=== PATIENT | female | born 1935 | race Caucasian/White ===

== ENCOUNTER 2018-05-13 05:39 | Inpatient (IN) | payer MEDICARE, OTHER ==
[2018-05-01 15:50] LABS: BASOPHILS % (AUTO) 0.6 % (0-1); EOSINOPHILS # (AUTO) 0.2 X10'3 (0-0.9); EOSINOPHILS % (AUTO) 2.2 % (0-6); LYMPHOCYTES # (AUTO) 1.3 X10'3 (1.1-4.8); LYMPHOCYTES % (AUTO) 15.8 % (21-51); MEAN CORPUSCULAR HEMOGLOBIN 30.7 PG (27.0-31.0); MEAN CORPUSCULAR HGB CONC 32.8 % (33.0-36.5); MEAN CORPUSCULAR VOLUME 93.5 FL (78-98); MONOCYTES # (AUTO) 0.6 X10'3 (0-0.9); MONOCYTES % (AUTO) 6.9 % (2-12); NEUTROPHILS # (AUTO) 6.1 X10'3 (1.8-7.7); NEUTROPHILS % (AUTO) 74.5 % (42-75); PRE OP HEMATOCRIT 36.6 % (35.0-45.0); PRE OP PLATELET COUNT 245 X10'3 (140-440); RED BLOOD COUNT 3.92 X10'6 (4.20-5.60)
[2018-05-01 16:18] LABS: ALBUMIN 3.5 G/DL (3.4-5.0); ALKALINE PHOSPHATASE 107 IU/L (46-116); BLOOD UREA NITROGEN 23 MG/DL (7-18); BUN/CREATININE RATIO 17.3 (6.6-38.0); CALCIUM 9.3 MG/DL (8.5-10.1); CHLORIDE 104 MMOL/L (99-107); CREATININE 1.33 MG/DL (0.40-0.90); PRE OP ALT 18 U/L (30-65); PRE OP ANION GAP 10 (8-16); PRE OP AST 16 U/L (10-37); PRE OP BILIRUB, TOTAL 0.3 MG/DL (0.0-1.0); PRE OP GLUCOSE 130 MG/DL (70-104); PRE OP SODIUM 143 MMOL/L (135-145); TOTAL CARBON DIOXIDE 28.8 MMOL/L (24-32); TOTAL PROTEIN 7.1 G/DL (6.4-8.2); eGFR 38 ML/MIN
[2018-05-13] VITALS (19 sets, daily range): BP systolic 71–168; BP diastolic 43–87
[~2018-05-13] VITALS: Ht 167.6 cm; Wt 98.5 kg
[~2018-05-13 05:39] MED LIST: ALLO100T PO; AMLO2.5T2 PO; CALC0.253 PO; CHOL400C8 PO; CYAN-19 PO; DOCU-20 PO; FLUT16SP2 BOTHNARES; FLUT1AER INH; FURO-149 PO; GABA-532 PO; IBUP-2264 PO; IRON150C5 PO; LEVO112T5 PO; MAGN400C PO; MONT10TA24 PO; OMEP20CA10 PO; SENN-161 PO; SIMV20TA5 PO; TIOT18CA3 INH; TRAM50TA2 PO; VALS160T2 PO; VIT1CAPS27 PO; albuterol 2.5 MG/3 ML nebule NEB ONE; cefazolin/dext.iso 2gm/100 ML IV ONE; famotidine 20mg tablet PO ONE; ringers solution, lacted 1,000 ML IV SCH; tranexamic acid inj. 1,000 MG in normal saline 100ml IV soln 90 ML IV ONE; vancomycin inj 1,500 MG in normal saline 300ml IV soln IV ONE
[2018-05-13] MEDS ORDERED: LIDOcaine 1% (10mg/ml) 2ml vial ONE (05:59)
[2018-05-13] MEDS ORDERED: ceFAZolin 1000mg inj ONE (07:00)
[2018-05-13] MEDS ORDERED: tetracaine 1% (10mg/ml) pres. free inj. ONE (07:16)
[2018-05-13] MEDS ORDERED: fentaNYL/PF 50MCG/1 ML 2ML syringe ONE (07:17)
[2018-05-13] MEDS ORDERED: MIDAZolam 5mg/5ml vial ONE (07:18)
[2018-05-13] MEDS ORDERED: propofol inj 20 ML IV ONE (07:54)
[2018-05-13] MEDS ORDERED: ringers solution, lacted 1,000 ML IV SCH (08:18)
[2018-05-13] MEDS ORDERED: morphine 4 MG/ML inj SYRINge IV PRN ×2 (08:20)
[2018-05-13] MEDS ORDERED: proCHLORperazine 10 MG/2 ml inj IV PRN (08:20)
[2018-05-13] MEDS ORDERED: ondansetron/PF 4mg/2ml inj IV PRN ×2 (08:20→10:00)
[2018-05-13] MEDS ORDERED: meperidine/PF 25mg/ml syringe IV PRN ×3 (08:20)
[2018-05-13] MEDS ORDERED: ROPIVAcaine 0.5% (5mg/ml) 30ml vial ONE (08:58)
[2018-05-13] MEDS ORDERED: cloNIDine hcl/PF 100mcg/ml inj ONE (08:59)
[2018-05-13] MEDS ORDERED: magnesium hydroxide 30ml (MOM) UD suspension PO PRN (10:00)
[2018-05-13] MEDS ORDERED: diphenhydrAMINE 25mg capsule PO PRN ×2 (10:00)
[2018-05-13] MEDS ORDERED: HYDROmorphone inj. 0.5 MG/0.5 ML DISP.SYRIN IV PRN (10:00)
[2018-05-13] MEDS ORDERED: bisacodyl 10mg suppository rectal RC PRN (10:00)
[2018-05-13] MEDS: HYDROcodone/acetaminophen 10/325mg tab PO PRN ×3 (11:40→16:53)
[2018-05-13] MEDS ORDERED: albuterol 2.5 MG/3 ML nebule ONE (13:54)
[2018-05-13] MEDS: ipratropium 0.5 MG/2.5ML nebule IH SCH ×3 (14:00→21:12)
[2018-05-13] MEDS: HYDROmorphone 1 mg/ml syringe IV PRN ×2 (15:40→20:01)
[2018-05-13] MEDS: ceFAZolin 1GM/D5W- ADD-VANTAGE 50 ML IV SCH ×2 (15:41→23:59)
[2018-05-13] MEDS ORDERED: aspirin 325mg tablet PO SCH (17:30)
[2018-05-13] MEDS: potassium Cl 20mEq in NS 1,000 ML IV SCH ×2 (19:58→20:13)
[2018-05-13] MEDS ORDERED: vancomycin/NS 1 GM ADD-VANTAGE 250 ML IV SCH (20:00)
[2018-05-13] MEDS ORDERED: non-formulary drug (Omeprazole 1 CAP) PO SCH (20:00)
[2018-05-13] MEDS: pantoprazole 40mg Tablet.DR PO SCH (20:01)
[2018-05-13] MEDS: docusate sod 100mg capsule PO SCH (20:01)
[2018-05-13] MEDS: gabapentin 300mg capsule PO SCH (20:03)
[2018-05-13] MEDS: sennosides 8.6mg tablet PO SCH (20:03)
[2018-05-13] MEDS: montelukast 10mg tablet PO SCH (20:03)
[2018-05-13] MEDS: BUDESONIDE 0.25 MG/2 ML AMPUL.NEB IH SCH (21:12)
[2018-05-13] MEDS: albuterol 2.5 MG/3 ML nebule NEB SCH (21:12)
[2018-05-14] MEDS: HYDROcodone/acetaminophen 10/325mg tab PO PRN ×6 (00:02→21:13)
[2018-05-14 02:00] VITALS: BP 151/58
[2018-05-14] MEDS: ipratropium 0.5 MG/2.5ML nebule IH SCH ×4 (02:57→20:43)
[2018-05-14 05:00] VITALS: BP 125/43
[2018-05-14 05:48] LABS: BASOPHILS % (AUTO) 0.1 % (0-1); EOSINOPHILS # (AUTO) 0.2 X10'3 (0-0.9); EOSINOPHILS % (AUTO) 1.9 % (0-6); HEMATOCRIT 27.8 % (35.0-45.0); HEMOGLOBIN 9.2 g/dl (12.0-16.0); LYMPHOCYTES % (AUTO) 7.4 % (21-51); MEAN CORPUSCULAR HEMOGLOBIN 30.8 PG (27.0-31.0); MEAN CORPUSCULAR HGB CONC 33.1 % (33.0-36.5); MEAN CORPUSCULAR VOLUME 93.1 FL (78-98); MEAN PLATELET VOLUME 6.6 FL (7.4-10.4); MONOCYTES # (AUTO) 1.7 X10'3 (0-0.9); NEUTROPHILS # (AUTO) 10.1 X10'3 (1.8-7.7); NEUTROPHILS % (AUTO) 77.6 % (42-75); PLATELET COUNT 233 X10'3 (140-440); RED BLOOD COUNT 2.99 X10'6 (4.20-5.60)
[2018-05-14 06:25] LABS: ALANINE AMINOTRANSFERASE 15 U/L (12-78); ALBUMIN 2.4 G/DL (3.4-5.0); ALBUMIN/GLOBULIN RATIO 0.8 (1.1-1.5); ALKALINE PHOSPHATASE 76 IU/L (46-116); ANION GAP 7 (8-16); ASPARTATE AMINO TRANSFERASE 17 U/L (10-37); BILIRUBIN,TOTAL 0.3 MG/DL (0.1-1.0); BLOOD UREA NITROGEN 19 MG/DL (7-18); BUN/CREATININE RATIO 15.2 (6.6-38.0); CHLORIDE 103 MMOL/L (99-107); CREATININE 1.25 MG/DL (0.40-0.90); GLUCOSE 119 MG/DL (70-104); POTASSIUM 4.5 MMOL/L (3.5-5.1); SODIUM 135 MMOL/L (135-145); TOTAL PROTEIN 5.5 G/DL (6.4-8.2); eGFR 41 ML/MIN
[2018-05-14] MEDS: potassium Cl 20mEq in NS 1,000 ML IV SCH ×2 (06:29→15:58)
[2018-05-14] MEDS: aspirin 81mg tab.chew PO SCH ×2 (08:03→17:33)
[2018-05-14] MEDS: docusate sod 100mg capsule PO SCH ×2 (08:04→19:54)
[2018-05-14] MEDS: furosemide 40mg tablet PO SCH (08:04)
[2018-05-14] MEDS: losartan 50mg tablet PO SCH (08:04)
[2018-05-14] MEDS: pantoprazole 40mg Tablet.DR PO SCH ×2 (08:05→19:54)
[2018-05-14] MEDS: sennosides 8.6mg tablet PO SCH ×2 (08:05→21:12)
[2018-05-14] MEDS: amLODIPine 2.5mg tablet PO SCH (08:05)
[2018-05-14] MEDS: levoTHYROXINE 112mcg tablet PO SCH (08:06)
[2018-05-14] MEDS: allopurinol 100mg tablet PO SCH (08:06)
[2018-05-14] MEDS: BUDESONIDE 0.25 MG/2 ML AMPUL.NEB IH SCH ×2 (08:35→20:00)
[2018-05-14] MEDS: albuterol 2.5 MG/3 ML nebule NEB SCH ×4 (08:35→19:00)
[2018-05-14 10:00] VITALS: BP 152/51
[2018-05-14 18:00] VITALS: BP 142/85
[2018-05-14] MEDS: HYDROmorphone 1 mg/ml syringe IV PRN (19:01)
[2018-05-14] MEDS: gabapentin 300mg capsule PO SCH (21:11)
[2018-05-14] MEDS: montelukast 10mg tablet PO SCH (21:11)
[2018-05-14 22:00] VITALS: BP 156/46
[2018-05-15] MEDS: HYDROcodone/acetaminophen 10/325mg tab PO PRN ×3 (00:59→20:33)
[2018-05-15] MEDS: ipratropium 0.5 MG/2.5ML nebule IH SCH ×4 (02:37→20:29)
[2018-05-15 05:50] LABS: BASOPHILS % (AUTO) 0.4 % (0-1); EOSINOPHILS # (AUTO) 0.3 X10'3 (0-0.9); EOSINOPHILS % (AUTO) 2.4 % (0-6); HEMATOCRIT 28.4 % (35.0-45.0); HEMOGLOBIN 9.2 g/dl (12.0-16.0); LYMPHOCYTES # (AUTO) 1.2 X10'3 (1.1-4.8); LYMPHOCYTES % (AUTO) 9.5 % (21-51); MEAN CORPUSCULAR HEMOGLOBIN 30.6 PG (27.0-31.0); MEAN CORPUSCULAR HGB CONC 32.5 % (33.0-36.5); MEAN PLATELET VOLUME 7.2 FL (7.4-10.4); MONOCYTES # (AUTO) 1.6 X10'3 (0-0.9); MONOCYTES % (AUTO) 12.2 % (2-12); NEUTROPHILS # (AUTO) 9.7 X10'3 (1.8-7.7); NEUTROPHILS % (AUTO) 75.5 % (42-75); PLATELET COUNT 227 X10'3 (140-440); RED BLOOD COUNT 3.02 X10'6 (4.20-5.60); RED CELL DISTRIBUTION WIDTH 15.9 % (11.5-14.5); WHITE BLOOD COUNT 12.8 X10'3 (4.5-11.0)
[2018-05-15 06:22] LABS: ALANINE AMINOTRANSFERASE 21 U/L (12-78); ALBUMIN 2.3 G/DL (3.4-5.0); ALBUMIN/GLOBULIN RATIO 0.7 (1.1-1.5); ALKALINE PHOSPHATASE 86 IU/L (46-116); ANION GAP 7 (8-16); ASPARTATE AMINO TRANSFERASE 27 U/L (10-37); BILIRUBIN,TOTAL 0.5 MG/DL (0.1-1.0); BLOOD UREA NITROGEN 15 MG/DL (7-18); BUN/CREATININE RATIO 13.4 (6.6-38.0); CALCIUM 8.2 MG/DL (8.5-10.1); CHLORIDE 98 MMOL/L (99-107); CREATININE 1.12 MG/DL (0.40-0.90); GLUCOSE 107 MG/DL (70-104); POTASSIUM 4.2 MMOL/L (3.5-5.1); SODIUM 132 MMOL/L (135-145); TOTAL PROTEIN 5.8 G/DL (6.4-8.2); eGFR 47 ML/MIN
[2018-05-15 06:44] VITALS: BP 136/53
[2018-05-15] MEDS: furosemide 40mg tablet PO SCH (08:00)
[2018-05-15] MEDS: amLODIPine 2.5mg tablet PO SCH (08:00)
[2018-05-15] MEDS: losartan 50mg tablet PO SCH (08:00)
[2018-05-15] MEDS: docusate sod 100mg capsule PO SCH ×2 (08:04→20:02)
[2018-05-15] MEDS: sennosides 8.6mg tablet PO SCH ×2 (08:04→20:02)
[2018-05-15] MEDS: aspirin 81mg tab.chew PO SCH ×2 (08:04→17:19)
[2018-05-15] MEDS: levoTHYROXINE 112mcg tablet PO SCH (08:04)
[2018-05-15] MEDS: allopurinol 100mg tablet PO SCH (08:04)
[2018-05-15] MEDS: pantoprazole 40mg Tablet.DR PO SCH ×2 (08:04→20:02)
[2018-05-15] MEDS: BUDESONIDE 0.25 MG/2 ML AMPUL.NEB IH SCH ×2 (08:26→20:00)
[2018-05-15] MEDS: albuterol 2.5 MG/3 ML nebule NEB SCH ×4 (08:26→20:28)
[2018-05-15 10:00] VITALS: BP 93/51
[2018-05-15] MEDS: acetaminophen 325mg tablet PO PRN (17:31)
[2018-05-15 18:00] VITALS: BP 149/50
[2018-05-15] MEDS: gabapentin 300mg capsule PO SCH (20:02)
[2018-05-15] MEDS: montelukast 10mg tablet PO SCH (20:02)
[2018-05-15 22:00] VITALS: BP 137/58
[2018-05-16] MEDS: ipratropium/albuterol 3ml nebule NEB SCH ×3 (02:00→13:27)
[2018-05-16 05:47] LABS: BASOPHILS % (AUTO) 0.3 % (0-1); EOSINOPHILS # (AUTO) 0.3 X10'3 (0-0.9); EOSINOPHILS % (AUTO) 2.4 % (0-6); HEMATOCRIT 27.5 % (35.0-45.0); HEMOGLOBIN 8.9 g/dl (12.0-16.0); LYMPHOCYTES % (AUTO) 9.8 % (21-51); MEAN CORPUSCULAR HEMOGLOBIN 30.5 PG (27.0-31.0); MEAN CORPUSCULAR HGB CONC 32.4 % (33.0-36.5); MEAN CORPUSCULAR VOLUME 94.1 FL (78-98); MEAN PLATELET VOLUME 7.3 FL (7.4-10.4); MONOCYTES # (AUTO) 1.3 X10'3 (0-0.9); MONOCYTES % (AUTO) 12.6 % (2-12); NEUTROPHILS % (AUTO) 74.9 % (42-75); PLATELET COUNT 208 X10'3 (140-440); RED BLOOD COUNT 2.92 X10'6 (4.20-5.60); RED CELL DISTRIBUTION WIDTH 15.3 % (11.5-14.5); WHITE BLOOD COUNT 10.7 X10'3 (4.5-11.0)
[2018-05-16] MEDS: acetaminophen 325mg tablet PO PRN ×2 (05:47→08:47)
[2018-05-16 06:00] VITALS: BP 158/59
[2018-05-16 06:11] LABS: ALANINE AMINOTRANSFERASE 22 U/L (12-78); ALBUMIN 2.1 G/DL (3.4-5.0); ALBUMIN/GLOBULIN RATIO 0.6 (1.1-1.5); ALKALINE PHOSPHATASE 89 IU/L (46-116); ANION GAP 5 (8-16); ASPARTATE AMINO TRANSFERASE 29 U/L (10-37); BILIRUBIN,TOTAL 0.5 MG/DL (0.1-1.0); BLOOD UREA NITROGEN 16 MG/DL (7-18); CALCIUM 8.7 MG/DL (8.5-10.1); CHLORIDE 98 MMOL/L (99-107); CREATININE 1.23 MG/DL (0.40-0.90); GLUCOSE 98 MG/DL (70-104); POTASSIUM 4.4 MMOL/L (3.5-5.1); SODIUM 133 MMOL/L (135-145); TOTAL CARBON DIOXIDE 29.7 MMOL/L (24-32); TOTAL PROTEIN 5.9 G/DL (6.4-8.2); eGFR 42 ML/MIN
[2018-05-16] MEDS: amLODIPine 2.5mg tablet PO SCH (08:00)
[2018-05-16] MEDS: furosemide 40mg tablet PO SCH (08:00)
[2018-05-16] MEDS: losartan 50mg tablet PO SCH (08:00)
[2018-05-16] MEDS: HYDROcodone/acetaminophen 10/325mg tab PO PRN ×2 (08:41→13:38)
[2018-05-16] MEDS: pantoprazole 40mg Tablet.DR PO SCH (08:41)
[2018-05-16] MEDS: sennosides 8.6mg tablet PO SCH (08:41)
[2018-05-16] MEDS: levoTHYROXINE 112mcg tablet PO SCH (08:41)
[2018-05-16] MEDS: allopurinol 100mg tablet PO SCH (08:41)
[2018-05-16] MEDS: docusate sod 100mg capsule PO SCH (08:42)
[2018-05-16] MEDS: aspirin 81mg tab.chew PO SCH (08:42)
[2018-05-16] MEDS: BUDESONIDE 0.25 MG/2 ML AMPUL.NEB IH SCH (08:43)
[2018-05-16 10:00] VITALS: BP 129/44
== END 2018-05-16 14:05 | DRG 470 ==
LOC: PAS IN 05:39 → EDSTATUS 07:30 → ORTHO 4S 11:00
PROVIDERS: ADMIT Orthopaedic Surgery; ATTEND Orthopaedic Surgery
PROC: 3E0T3BZ Introduction of Anesthetic Agent into Peripheral Nerves and Plexi, Percutaneous Approach (ICD-10-PCS; 2018-05-13)
PROC: 0SRC0J9 Replacement of Right Knee Joint with Synthetic Substitute, Cemented, Open Approach (ICD-10-PCS; principal; 2018-05-13 07:14)
DX: M17.11 Unilateral primary osteoarthritis, right knee (principal); D62 Acute posthemorrhagic anemia; J98.11 Atelectasis; E03.9 Hypothyroidism, unspecified; G47.30 Sleep apnea, unspecified; I10 Essential (primary) hypertension; I95.1 Orthostatic hypotension; E66.9 Obesity, unspecified; J44.9 Chronic obstructive pulmonary disease, unspecified; K21.9 Gastro-esophageal reflux disease without esophagitis; M10.9 Gout, unspecified; R33.9 Retention of urine, unspecified; Z90.710 Acquired absence of both cervix and uterus; Z88.8 Allergy status to other drugs, medicaments and biological substances; Z88.2 Allergy status to sulfonamides; Z79.899 Other long term (current) drug therapy; Z68.35 Body mass index [BMI] 35.0-35.9, adult
CPT/HCPCS: 36415; 73590; 80053; 84443; 85025; 85610; 85730; 86885; 86900; 86901; 86920; 87070; 93005; 94640; 94760; 97110; 97116; 97162; 97530; A6454; A7000; C1713; C1758; C1776; J0690; J0735; J1170; J2175; J2250; J2704; J2795; J3010; J3370; J3490; J7030; J7120

== ENCOUNTER 2018-06-24 19:55 | Inpatient (IN) | payer MEDICARE, OTHER ==
[~2018-06-24] VITALS: Ht 167.6 cm; Wt 100.0 kg
[~2018-06-24 19:55] MED LIST changes: -CALC0.253 PO; -CHOL400C8 PO; -CYAN-19 PO; -FLUT16SP2 BOTHNARES; -IBUP-2264 PO; -IRON150C5 PO; -MAGN400C PO; -SIMV20TA5 PO; -TRAM50TA2 PO; -VIT1CAPS27 PO; -albuterol 2.5 MG/3 ML nebule NEB ONE; -cefazolin/dext.iso 2gm/100 ML IV ONE; -famotidine 20mg tablet PO ONE; -ringers solution, lacted 1,000 ML IV SCH; -tranexamic acid inj. 1,000 MG in normal saline 100ml IV soln 90 ML IV ONE; -vancomycin inj 1,500 MG in normal saline 300ml IV soln IV ONE
[2018-06-24] MEDS ORDERED: normal saline 1000ML IV soln IV ONE (20:30)
[2018-06-24 20:37] LABS: BASOPHILS # (AUTO) 0.1 X10'3 (0-0.2); BASOPHILS % (AUTO) 0.4 % (0-1); EOSINOPHILS % (AUTO) 0 % (0-6); HEMATOCRIT 30.8 % (35.0-45.0); HEMOGLOBIN 9.8 g/dl (12.0-16.0); LYMPHOCYTES # (AUTO) 0.2 X10'3 (1.1-4.8); LYMPHOCYTES % (AUTO) 1.4 % (21-51); MEAN CORPUSCULAR HEMOGLOBIN 28.9 PG (27.0-31.0); MEAN CORPUSCULAR HGB CONC 31.7 % (33.0-36.5); MEAN PLATELET VOLUME 6.4 FL (7.4-10.4); MONOCYTES # (AUTO) 0.5 X10'3 (0-0.9); MONOCYTES % (AUTO) 3.5 % (2-12); NEUTROPHILS # (AUTO) 13.5 X10'3 (1.8-7.7); NEUTROPHILS % (AUTO) 94.7 % (42-75); PLATELET COUNT 249 X10'3 (140-440); RED BLOOD COUNT 3.39 X10'6 (4.20-5.60); RED CELL DISTRIBUTION WIDTH 17.3 % (11.5-14.5); WHITE BLOOD COUNT 14.2 X10'3 (4.5-11.0)
[2018-06-24 20:57] LABS: CLARITY,URINE CLOUDY (Clear); COLOR,URINE YELLOW (Yellow); GLUCOSE, URINE NEGATIVE (Neg); KETONES,URINE TRACE mg/dl (Neg); LEUKOCYTE ESTERASE ,URINE LARGE (Neg); NITRITES, URINE NEGATIVE (Neg); OCCULT BLOOD,URINE TRACE-INTACT (Neg); PH,URINE 5.5 (4.8-8.0); PROTEIN,URINE 30 mg/dl (Neg)
[2018-06-24 21:03] LABS: ALANINE AMINOTRANSFERASE 186 U/L (12-78); ALBUMIN 2.7 G/DL (3.4-5.0); ALBUMIN/GLOBULIN RATIO 0.8 (1.1-1.5); ALKALINE PHOSPHATASE 487 IU/L (46-116); ANION GAP 13 (8-16); ASPARTATE AMINO TRANSFERASE 355 U/L (10-37); BILIRUBIN,TOTAL 1.3 MG/DL (0.1-1.0); BLOOD UREA NITROGEN 28 MG/DL (7-18); BUN/CREATININE RATIO 20.4 (6.6-38.0); CALCIUM 9.2 MG/DL (8.5-10.1); CHLORIDE 107 MMOL/L (99-107); CREATININE 1.37 MG/DL (0.40-0.90); GLUCOSE 135 MG/DL (70-104); MAGNESIUM 1.3 MG/DL (1.5-2.4); SODIUM 144 MMOL/L (135-145); TOTAL CARBON DIOXIDE 24.4 MMOL/L (24-32); TOTAL PROTEIN 6.1 G/DL (6.4-8.2); eGFR 37 ML/MIN
[2018-06-24 21:13] LABS: POTASSIUM 2.9 MMOL/L (3.5-5.1)
[2018-06-24 21:16] LABS: UA COLLECTION TYPE STRAIGHT CATH
[2018-06-24 21:18] LABS: BACTERIA,URINE 4+ /HPF (Neg); RBC,URINE NONE SEEN /HPF (0-2); SQUAMOUS EPITHELIAL CELL,UR FEW /LPF (FEW); TRANSITIONAL EPI CELLS,URINE FEW /HPF; WBC,URINE 50-100 /HPF (0-4)
[2018-06-24] MEDS ORDERED: piperacillin/tazo 3.375gm/50ml 50 ML IV ONE (21:40)
[2018-06-24] MEDS ORDERED: CYAN250014 PO (22:13)
[2018-06-24] MEDS ORDERED: CALC0.253 PO (22:13)
[2018-06-24] MEDS ORDERED: ZOC5T PO (22:13)
[2018-06-24] MEDS ORDERED: MAGN400C PO (22:13)
[2018-06-24] MEDS ORDERED: CHOL10002 PO (22:13)
[2018-06-24] MEDS ORDERED: LOSA25TA96 PO (22:13)
[2018-06-24] MEDS ORDERED: ASPI-1265 PO (22:13)
[2018-06-24] MEDS ORDERED: IRON150C13 PO (22:13)
[2018-06-24] MEDS ORDERED: LEVO25TA2 PO (22:13)
[2018-06-24] MEDS ORDERED: magnesium 2GM in 50ml NS 50 ML IV ONE (22:25)
[2018-06-24] MEDS: potassium 10mEq/100ml NS w/LIDOcaine (10mg/bag) IV SCH ×2 (22:36→23:48)
[2018-06-24] MEDS ORDERED: acetaminophen 325mg tablet PO PRN ×2 (22:55)
[2018-06-24] MEDS ORDERED: magnesium hydroxide 30ml (MOM) UD suspension PO PRN (22:55)
[2018-06-24] MEDS ORDERED: ondansetron/PF 4mg/2ml inj IV PRN (22:55)
[2018-06-24] MEDS ORDERED: mag hydrox/Alum hydrox/simeth 30ml oral suspension PO PRN (22:55)
[2018-06-24] MEDS ORDERED: potassium Cl 20 mEq SR tablet PO STA (22:58)
[2018-06-24] MEDS: normal saline 1000ml 1,000 ML IV SCH (23:49)
[2018-06-24 23:55] LABS: PROTHROMBIN TIME 10.5 SECONDS (9.0-12.0)
[2018-06-25 00:30] VITALS: BP 141/45
[2018-06-25] MEDS: VANCOMYCIN IV SCH ×2 (00:56→03:51)
[2018-06-25] MEDS: iron polysaccharide complex 150mg capsule PO SCH (00:56)
[2018-06-25] MEDS: SODIUM CHLORIDE IV SCH ×2 (00:56→03:51)
[2018-06-25] MEDS: [UNRECOGNIZED DRUG - OTHER] IV SCH ×2 (00:56→03:51)
[2018-06-25] MEDS: piperacillin/tazo 3.375gm/50ml 50 ML IV SCH ×4 (02:57→20:52)
[2018-06-25] MEDS ORDERED: albuterol 2.5 MG/3 ML nebule NEB SCH (03:00)
[2018-06-25 05:39] LABS: BASOPHILS % (AUTO) 0 % (0-1); EOSINOPHILS % (AUTO) 0.1 % (0-6); HEMATOCRIT 28.8 % (35.0-45.0); HEMOGLOBIN 9.1 g/dl (12.0-16.0); LYMPHOCYTES # (AUTO) 0.5 X10'3 (1.1-4.8); MEAN CORPUSCULAR HEMOGLOBIN 28.6 PG (27.0-31.0); MEAN CORPUSCULAR HGB CONC 31.4 % (33.0-36.5); MEAN CORPUSCULAR VOLUME 91.1 FL (78-98); MEAN PLATELET VOLUME 7.1 FL (7.4-10.4); MONOCYTES % (AUTO) 5.5 % (2-12); NEUTROPHILS # (AUTO) 16.4 X10'3 (1.8-7.7); NEUTROPHILS % (AUTO) 91.4 % (42-75); PLATELET COUNT 229 X10'3 (140-440); RED BLOOD COUNT 3.16 X10'6 (4.20-5.60); RED CELL DISTRIBUTION WIDTH 17.7 % (11.5-14.5)
[2018-06-25 05:51] LABS: ALANINE AMINOTRANSFERASE 233 U/L (12-78); ALBUMIN 2.4 G/DL (3.4-5.0); ALBUMIN/GLOBULIN RATIO 0.7 (1.1-1.5); ALKALINE PHOSPHATASE 406 IU/L (46-116); ANION GAP 9 (8-16); ASPARTATE AMINO TRANSFERASE 342 U/L (10-37); BILIRUBIN,TOTAL 1.8 MG/DL (0.1-1.0); BLOOD UREA NITROGEN 27 MG/DL (7-18); CALCIUM 8.8 MG/DL (8.5-10.1); CHLORIDE 108 MMOL/L (99-107); CREATININE 1.23 MG/DL (0.40-0.90); GLUCOSE 142 MG/DL (70-104); POTASSIUM 3.8 MMOL/L (3.5-5.1); SODIUM 144 MMOL/L (135-145); TOTAL CARBON DIOXIDE 27.1 MMOL/L (24-32); TOTAL PROTEIN 5.8 G/DL (6.4-8.2); eGFR 42 ML/MIN
[2018-06-25 07:19] VITALS: BP 139/47
[2018-06-25] MEDS: pantoprazole 40mg Tablet.DR PO SCH (07:25)
[2018-06-25] MEDS: levoTHYROXINE 125mcg tablet PO SCH (07:25)
[2018-06-25] MEDS ORDERED: furosemide 40mg tablet PO SCH (08:00)
[2018-06-25] MEDS ORDERED: non-formulary drug (Fluticasone/Vilanterol (Breo Ellipta 100-25 Mcg INH) 1 PUFF) INH SCH (08:00)
[2018-06-25] MEDS ORDERED: ipratropium 0.5 MG/2.5ML nebule NEB SCH (08:00)
[2018-06-25] MEDS: budesonide 0.5mg/2ml UD nebule IH SCH ×2 (08:08→21:05)
[2018-06-25] MEDS: ipratropium/albuterol 3ml nebule IH SCH ×3 (08:08→21:05)
[2018-06-25] MEDS: aspirin 81mg tab.chew PO SCH (08:27)
[2018-06-25] MEDS: calcitriol 0.25mcg capsule PO SCH (08:27)
[2018-06-25] MEDS: allopurinol 300 MG tablet PO SCH (08:27)
[2018-06-25] MEDS: sennosides 8.6mg tablet PO SCH (08:28)
[2018-06-25] MEDS: potassium Cl 20 mEq SR tablet PO SCH (08:29)
[2018-06-25] MEDS: amLODIPine 5mg tablet PO SCH (08:29)
[2018-06-25] MEDS: losartan 50mg tablet PO SCH (08:30)
[2018-06-25] MEDS: magnesium oxide 400mg tablet PO SCH (08:30)
[2018-06-25] MEDS: docusate sod 100mg capsule PO SCH ×2 (08:30→20:50)
[2018-06-25] MEDS ORDERED: sincalide inj 2 MCG in normal saline 50ml IV soln 50 ML IV ONE (08:45)
[2018-06-25] MEDS: normal saline 1000ml 1,000 ML IV SCH ×2 (08:55→15:01)
[2018-06-25 11:00] VITALS: BP 148/58
[2018-06-25] MEDS: enoxaparin 40mg/0.4ml syringe SUBCUT SCH (15:00)
[2018-06-25 20:00] VITALS: BP 151/50
[2018-06-25] MEDS: gabapentin 300mg capsule PO SCH (20:50)
[2018-06-25] MEDS: montelukast 10mg tablet PO SCH (20:51)
[2018-06-25] MEDS: lactobacillus rhamnosus 10,000 MMU CELLS/CAPSULE PO SCH (20:51)
[2018-06-25] MEDS ORDERED: atorvastatin 10mg tablet PO SCH (21:00)
[2018-06-26] VITALS: BP 140/57
[2018-06-26] MEDS: ipratropium/albuterol 3ml nebule IH SCH ×4 (02:26→20:34)
[2018-06-26] MEDS: potassium Cl 20mEq in NS 1,000 ML IV SCH ×3 (02:39→21:44)
[2018-06-26] MEDS: piperacillin/tazo 3.375gm/50ml 50 ML IV SCH ×2 (02:39→08:48)
[2018-06-26 05:20] LABS: BASOPHILS % (AUTO) 0 % (0-1); EOSINOPHILS # (AUTO) 0.3 X10'3 (0-0.9); EOSINOPHILS % (AUTO) 2.6 % (0-6); HEMATOCRIT 27.2 % (35.0-45.0); HEMOGLOBIN 8.8 g/dl (12.0-16.0); LYMPHOCYTES # (AUTO) 0.7 X10'3 (1.1-4.8); LYMPHOCYTES % (AUTO) 4.9 % (21-51); MEAN CORPUSCULAR HEMOGLOBIN 29.4 PG (27.0-31.0); MEAN CORPUSCULAR HGB CONC 32.2 % (33.0-36.5); MEAN CORPUSCULAR VOLUME 91.2 FL (78-98); MEAN PLATELET VOLUME 7.3 FL (7.4-10.4); MONOCYTES # (AUTO) 0.7 X10'3 (0-0.9); MONOCYTES % (AUTO) 4.9 % (2-12); NEUTROPHILS % (AUTO) 87.6 % (42-75); PLATELET COUNT 205 X10'3 (140-440); RED BLOOD COUNT 2.98 X10'6 (4.20-5.60); WHITE BLOOD COUNT 13.6 X10'3 (4.5-11.0)
[2018-06-26 05:39] LABS: ALANINE AMINOTRANSFERASE 202 U/L (12-78); ALBUMIN 2.5 G/DL (3.4-5.0); ALBUMIN/GLOBULIN RATIO 0.7 (1.1-1.5); ALKALINE PHOSPHATASE 338 IU/L (46-116); ANION GAP 10 (8-16); ASPARTATE AMINO TRANSFERASE 234 U/L (10-37); BILIRUBIN,TOTAL 1.7 MG/DL (0.1-1.0); BLOOD UREA NITROGEN 17 MG/DL (7-18); BUN/CREATININE RATIO 15.2 (6.6-38.0); CALCIUM 8.9 MG/DL (8.5-10.1); CHLORIDE 105 MMOL/L (99-107); CREATININE 1.12 MG/DL (0.40-0.90); GLUCOSE 99 MG/DL (70-104); POTASSIUM 3.1 MMOL/L (3.5-5.1); SODIUM 142 MMOL/L (135-145); TOTAL CARBON DIOXIDE 27.5 MMOL/L (24-32); TOTAL PROTEIN 5.9 G/DL (6.4-8.2); eGFR 47 ML/MIN
[2018-06-26] MEDS: budesonide 0.5mg/2ml UD nebule IH SCH ×2 (07:19→20:34)
[2018-06-26 08:00] VITALS: BP 110/60
[2018-06-26] MEDS: lactobacillus rhamnosus 10,000 MMU CELLS/CAPSULE PO SCH ×2 (08:45→21:07)
[2018-06-26] MEDS: levoTHYROXINE 125mcg tablet PO SCH (08:45)
[2018-06-26] MEDS: losartan 50mg tablet PO SCH (08:46)
[2018-06-26] MEDS: docusate sod 100mg capsule PO SCH ×2 (08:46→21:07)
[2018-06-26] MEDS: potassium Cl 20 mEq SR tablet PO SCH ×2 (08:46→17:25)
[2018-06-26] MEDS: allopurinol 300 MG tablet PO SCH (08:46)
[2018-06-26] MEDS: magnesium oxide 400mg tablet PO SCH (08:47)
[2018-06-26] MEDS: calcitriol 0.25mcg capsule PO SCH (08:47)
[2018-06-26] MEDS: sennosides 8.6mg tablet PO SCH (08:47)
[2018-06-26] MEDS: aspirin 81mg tab.chew PO SCH (08:47)
[2018-06-26] MEDS: amLODIPine 5mg tablet PO SCH (08:47)
[2018-06-26] MEDS: enoxaparin 40mg/0.4ml syringe SUBCUT SCH (08:48)
[2018-06-26] MEDS: pantoprazole 40mg Tablet.DR PO SCH (09:05)
[2018-06-26 11:00] VITALS: BP 147/59
[2018-06-26] MEDS ORDERED: magnesium 4gm in 100ml NS 100 ML IV PRN (13:00)
[2018-06-26] MEDS ORDERED: potassium Cl 40MEQ/NS 500ml 500 ML IV PRN ×2 (13:00)
[2018-06-26] MEDS ORDERED: potassium Cl 20 mEq SR tablet PO PRN (13:00)
[2018-06-26] MEDS ORDERED: magnesium Cl slow-release 64mg tablet PO PRN (13:00)
[2018-06-26] MEDS ORDERED: magnesium 2GM in 50ml NS 50 ML IV PRN (13:00)
[2018-06-26] MEDS: levoFLOXACIN-Levaquin 750MG/D5 150 ML IV SCH (13:09)
[2018-06-26] MEDS: potassium Cl 20 mEq SR tablet PO PRN ×2 (13:16→21:24)
[2018-06-26 19:30] VITALS: BP 149/53
[2018-06-26] MEDS: gabapentin 300mg capsule PO SCH (21:07)
[2018-06-26] MEDS: montelukast 10mg tablet PO SCH (21:07)
[2018-06-26] MEDS: iron polysaccharide complex 150mg capsule PO SCH (23:51)
[2018-06-27] VITALS (21 sets, daily range): BP systolic 111–168; BP diastolic 53–77
[2018-06-27] MEDS: ipratropium/albuterol 3ml nebule IH SCH ×4 (02:35→21:03)
[2018-06-27 05:22] LABS: BASOPHILS % (AUTO) 0.2 % (0-1); EOSINOPHILS # (AUTO) 0.2 X10'3 (0-0.9); EOSINOPHILS % (AUTO) 1.5 % (0-6); HEMOGLOBIN 8.8 g/dl (12.0-16.0); LYMPHOCYTES # (AUTO) 0.8 X10'3 (1.1-4.8); LYMPHOCYTES % (AUTO) 7.2 % (21-51); MEAN CORPUSCULAR HEMOGLOBIN 28.8 PG (27.0-31.0); MEAN CORPUSCULAR HGB CONC 31.6 % (33.0-36.5); MEAN CORPUSCULAR VOLUME 91.3 FL (78-98); MEAN PLATELET VOLUME 7.3 FL (7.4-10.4); MONOCYTES # (AUTO) 0.7 X10'3 (0-0.9); MONOCYTES % (AUTO) 6.1 % (2-12); PLATELET COUNT 198 X10'3 (140-440); RED BLOOD COUNT 3.07 X10'6 (4.20-5.60); RED CELL DISTRIBUTION WIDTH 17.5 % (11.5-14.5); WHITE BLOOD COUNT 10.6 X10'3 (4.5-11.0)
[2018-06-27 05:48] LABS: ALANINE AMINOTRANSFERASE 177 U/L (12-78); ALBUMIN 2.4 G/DL (3.4-5.0); ALBUMIN/GLOBULIN RATIO 0.7 (1.1-1.5); ALKALINE PHOSPHATASE 301 IU/L (46-116); ANION GAP 10 (8-16); ASPARTATE AMINO TRANSFERASE 147 U/L (10-37); BILIRUBIN,TOTAL 0.8 MG/DL (0.1-1.0); BLOOD UREA NITROGEN 13 MG/DL (7-18); BUN/CREATININE RATIO 12.3 (6.6-38.0); CHLORIDE 106 MMOL/L (99-107); CREATININE 1.06 MG/DL (0.40-0.90); GLUCOSE 105 MG/DL (70-104); POTASSIUM 3.8 MMOL/L (3.5-5.1); SODIUM 141 MMOL/L (135-145); eGFR 50 ML/MIN
[2018-06-27] MEDS: magnesium oxide 400mg tablet PO SCH (08:00)
[2018-06-27] MEDS: budesonide 0.5mg/2ml UD nebule IH SCH ×2 (08:04→21:02)
[2018-06-27] MEDS: aspirin 81mg tab.chew PO SCH (09:43)
[2018-06-27] MEDS: calcitriol 0.25mcg capsule PO SCH (09:43)
[2018-06-27] MEDS: pantoprazole 40mg Tablet.DR PO SCH (09:43)
[2018-06-27] MEDS: losartan 50mg tablet PO SCH (09:44)
[2018-06-27] MEDS: amLODIPine 5mg tablet PO SCH (09:44)
[2018-06-27] MEDS: docusate sod 100mg capsule PO SCH ×2 (09:44→20:44)
[2018-06-27] MEDS: lactobacillus rhamnosus 10,000 MMU CELLS/CAPSULE PO SCH ×2 (09:44→20:44)
[2018-06-27] MEDS: allopurinol 300 MG tablet PO SCH (09:45)
[2018-06-27] MEDS: levoTHYROXINE 125mcg tablet PO SCH (09:45)
[2018-06-27] MEDS: sennosides 8.6mg tablet PO SCH (09:45)
[2018-06-27] MEDS: levoFLOXACIN-Levaquin 750MG/D5 150 ML IV SCH (09:49)
[2018-06-27] MEDS: enoxaparin 40mg/0.4ml syringe SUBCUT SCH (09:55)
[2018-06-27] MEDS ORDERED: fentaNYL/PF 50MCG/1 ML 2ML syringe ONE (14:58)
[2018-06-27] MEDS ORDERED: meperidine/PF 100mg/ml syringe ONE (14:58)
[2018-06-27] MEDS ORDERED: diphenhydrAMINE 50 mg/ml inj ONE (14:59)
[2018-06-27] MEDS ORDERED: LIDOcaine Viscous 15ml cup ONE (14:59)
[2018-06-27] MEDS ORDERED: MIDAZolam 5mg/5ml vial ONE (14:59)
[2018-06-27] MEDS ORDERED: glucagon, human recombinant 1mg kit ONE (14:59)
[2018-06-27] MEDS ORDERED: iohexol 300 MG/1 ML 50ml polymer ONE (15:00)
[2018-06-27] MEDS: potassium Cl 20mEq in NS 1,000 ML IV SCH (17:49)
[2018-06-27] MEDS: montelukast 10mg tablet PO SCH (20:44)
[2018-06-27] MEDS: gabapentin 300mg capsule PO SCH (20:44)
[2018-06-28] VITALS: BP 117/53
[2018-06-28] MEDS ORDERED: VANCOMYCIN LEVEL IV NR (00:30)
[2018-06-28 00:47] VITALS: BP 117/53
[2018-06-28] MEDS: potassium Cl 20mEq in NS 1,000 ML IV SCH ×2 (02:44→22:32)
[2018-06-28] MEDS: ipratropium/albuterol 3ml nebule IH SCH ×4 (03:00→20:10)
[2018-06-28 06:07] LABS: BASOPHILS % (AUTO) 0.3 % (0-1); EOSINOPHILS # (AUTO) 0.2 X10'3 (0-0.9); EOSINOPHILS % (AUTO) 1.7 % (0-6); HEMATOCRIT 27.8 % (35.0-45.0); HEMOGLOBIN 8.8 g/dl (12.0-16.0); LYMPHOCYTES # (AUTO) 0.8 X10'3 (1.1-4.8); LYMPHOCYTES % (AUTO) 7.7 % (21-51); MEAN CORPUSCULAR HGB CONC 31.7 % (33.0-36.5); MEAN CORPUSCULAR VOLUME 91.5 FL (78-98); MEAN PLATELET VOLUME 7.5 FL (7.4-10.4); MONOCYTES # (AUTO) 0.7 X10'3 (0-0.9); MONOCYTES % (AUTO) 6.5 % (2-12); NEUTROPHILS # (AUTO) 8.5 X10'3 (1.8-7.7); NEUTROPHILS % (AUTO) 83.8 % (42-75); PLATELET COUNT 185 X10'3 (140-440); RED BLOOD COUNT 3.04 X10'6 (4.20-5.60); RED CELL DISTRIBUTION WIDTH 17.3 % (11.5-14.5); WHITE BLOOD COUNT 10.1 X10'3 (4.5-11.0)
[2018-06-28 06:31] LABS: ALANINE AMINOTRANSFERASE 116 U/L (12-78); ALBUMIN 2.3 G/DL (3.4-5.0); ALBUMIN/GLOBULIN RATIO 0.7 (1.1-1.5); ALKALINE PHOSPHATASE 273 IU/L (46-116); ANION GAP 12 (8-16); ASPARTATE AMINO TRANSFERASE 63 U/L (10-37); BILIRUBIN,TOTAL 0.6 MG/DL (0.1-1.0); BLOOD UREA NITROGEN 12 MG/DL (7-18); BUN/CREATININE RATIO 13.8 (6.6-38.0); CHLORIDE 107 MMOL/L (99-107); CREATININE 0.87 MG/DL (0.40-0.90); GLUCOSE 92 MG/DL (70-104); MAGNESIUM 1.5 MG/DL (1.5-2.4); POTASSIUM 3.6 MMOL/L (3.5-5.1); SODIUM 142 MMOL/L (135-145); TOTAL CARBON DIOXIDE 22.8 MMOL/L (24-32); TOTAL PROTEIN 5.8 G/DL (6.4-8.2); eGFR 62 ML/MIN
[2018-06-28] MEDS: levoFLOXACIN-Levaquin 750MG/D5 150 ML IV SCH (08:00)
[2018-06-28] MEDS: docusate sod 100mg capsule PO SCH ×2 (08:02→20:22)
[2018-06-28] MEDS: allopurinol 300 MG tablet PO SCH (08:02)
[2018-06-28] MEDS: calcitriol 0.25mcg capsule PO SCH (08:02)
[2018-06-28] MEDS: pantoprazole 40mg Tablet.DR PO SCH (08:03)
[2018-06-28] MEDS: magnesium oxide 400mg tablet PO SCH (08:03)
[2018-06-28] MEDS: losartan 50mg tablet PO SCH (08:03)
[2018-06-28] MEDS: lactobacillus rhamnosus 10,000 MMU CELLS/CAPSULE PO SCH ×2 (08:03→20:22)
[2018-06-28] MEDS: sennosides 8.6mg tablet PO SCH (08:04)
[2018-06-28] MEDS: potassium Cl 20 mEq SR tablet PO SCH (08:04)
[2018-06-28] MEDS: amLODIPine 5mg tablet PO SCH (08:04)
[2018-06-28] MEDS: levoTHYROXINE 125mcg tablet PO SCH (08:05)
[2018-06-28] MEDS: budesonide 0.5mg/2ml UD nebule IH SCH ×2 (09:40→20:10)
[2018-06-28 11:00] VITALS: BP 166/94
[2018-06-28 20:00] VITALS: BP 161/61
[2018-06-28] MEDS: gabapentin 300mg capsule PO SCH (20:22)
[2018-06-28] MEDS: montelukast 10mg tablet PO SCH (20:22)
[2018-06-28] MEDS: iron polysaccharide complex 150mg capsule PO SCH (22:33)
[2018-06-29] VITALS (18 sets, daily range): BP systolic 143–170; BP diastolic 58–86
[2018-06-29] MEDS: ipratropium/albuterol 3ml nebule IH SCH ×4 (02:37→20:07)
[2018-06-29 05:06] LABS: BASOPHILS % (AUTO) 0.5 % (0-1); EOSINOPHILS # (AUTO) 0.2 X10'3 (0-0.9); EOSINOPHILS % (AUTO) 2.7 % (0-6); HEMATOCRIT 28.5 % (35.0-45.0); HEMOGLOBIN 9.1 g/dl (12.0-16.0); LYMPHOCYTES % (AUTO) 12.7 % (21-51); MEAN CORPUSCULAR HEMOGLOBIN 28.9 PG (27.0-31.0); MEAN CORPUSCULAR HGB CONC 31.9 % (33.0-36.5); MEAN CORPUSCULAR VOLUME 90.4 FL (78-98); MONOCYTES # (AUTO) 0.5 X10'3 (0-0.9); MONOCYTES % (AUTO) 6.7 % (2-12); NEUTROPHILS # (AUTO) 6.1 X10'3 (1.8-7.7); NEUTROPHILS % (AUTO) 77.4 % (42-75); PLATELET COUNT 219 X10'3 (140-440); RED BLOOD COUNT 3.15 X10'6 (4.20-5.60); RED CELL DISTRIBUTION WIDTH 17.9 % (11.5-14.5); WHITE BLOOD COUNT 7.9 X10'3 (4.5-11.0)
[2018-06-29 05:41] LABS: ALANINE AMINOTRANSFERASE 86 U/L (12-78); ALBUMIN 2.4 G/DL (3.4-5.0); ALBUMIN/GLOBULIN RATIO 0.7 (1.1-1.5); ALKALINE PHOSPHATASE 245 IU/L (46-116); ANION GAP 11 (8-16); ASPARTATE AMINO TRANSFERASE 37 U/L (10-37); BILIRUBIN,TOTAL 0.6 MG/DL (0.1-1.0); BLOOD UREA NITROGEN 9 MG/DL (7-18); BUN/CREATININE RATIO 10.2 (6.6-38.0); CALCIUM 8.8 MG/DL (8.5-10.1); CHLORIDE 106 MMOL/L (99-107); CREATININE 0.88 MG/DL (0.40-0.90); GLUCOSE 89 MG/DL (70-104); MAGNESIUM 1.5 MG/DL (1.5-2.4); POTASSIUM 3.8 MMOL/L (3.5-5.1); SODIUM 141 MMOL/L (135-145); TOTAL PROTEIN 5.8 G/DL (6.4-8.2); eGFR 62 ML/MIN
[2018-06-29 07:32] LABS: PARTIAL THROMBOPLASTIN TIME 28 SECONDS (22-32); PROTHROMBIN TIME 10.4 SECONDS (9.0-12.0)
[2018-06-29] MEDS: magnesium oxide 400mg tablet PO SCH (07:40)
[2018-06-29] MEDS: calcitriol 0.25mcg capsule PO SCH (07:40)
[2018-06-29] MEDS: potassium Cl 20 mEq SR tablet PO SCH (07:41)
[2018-06-29] MEDS: allopurinol 300 MG tablet PO SCH (07:41)
[2018-06-29] MEDS: levoTHYROXINE 125mcg tablet PO SCH (07:41)
[2018-06-29] MEDS: pantoprazole 40mg Tablet.DR PO SCH (07:41)
[2018-06-29] MEDS: losartan 50mg tablet PO SCH (07:41)
[2018-06-29] MEDS: sennosides 8.6mg tablet PO SCH (07:41)
[2018-06-29] MEDS: docusate sod 100mg capsule PO SCH ×2 (07:41→20:22)
[2018-06-29] MEDS: lactobacillus rhamnosus 10,000 MMU CELLS/CAPSULE PO SCH ×2 (07:42→20:22)
[2018-06-29] MEDS: amLODIPine 5mg tablet PO SCH (07:45)
[2018-06-29] MEDS: levoFLOXACIN-Levaquin 750MG/D5 150 ML IV SCH (07:46)
[2018-06-29] MEDS: budesonide 0.5mg/2ml UD nebule IH SCH ×2 (08:38→20:07)
[2018-06-29] MEDS ORDERED: LIDOcaine 1% 30ml preserv. free vial ONE (11:13)
[2018-06-29] MEDS ORDERED: BUPIVAcaine/PF 2.5mg/ml (0.25%) 10ml vial ONE (11:13)
[2018-06-29] MEDS ORDERED: fentaNYL/PF 50MCG/1 ML 2ML syringe ONE (11:57)
[2018-06-29] MEDS ORDERED: midazolam 2 mg/2 ml injection ONE (11:57)
[2018-06-29] MEDS ORDERED: rocuronium 10mg/ml inj IV ONE (11:57)
[2018-06-29] MEDS ORDERED: propofol inj 20 ML IV ONE (11:57)
[2018-06-29] MEDS ORDERED: LIDOcaine 1% 30ml preserv. free vial IJ ONE (12:26)
[2018-06-29] MEDS ORDERED: BUPIVAcaine/PF 2.5mg/ml (0.25%) 10ml vial IJ ONE (12:27)
[2018-06-29] MEDS ORDERED: ringers solution, lacted 1,000 ML IV SCH (12:32)
[2018-06-29] MEDS ORDERED: ondansetron/PF 4mg/2ml inj IV PRN (12:35)
[2018-06-29] MEDS ORDERED: meperidine/PF 25mg/ml syringe IV PRN ×3 (12:35)
[2018-06-29] MEDS ORDERED: morphine 4 MG/ML inj SYRINge IV PRN ×2 (12:35)
[2018-06-29] MEDS ORDERED: proCHLORperazine 10 MG/2 ml inj IV PRN (12:35)
[2018-06-29] MEDS ORDERED: neostigmine methylsulfate 1 MG/ML 10ml vial ONE (12:43)
[2018-06-29] MEDS ORDERED: glycopyrrolate 0.2mg/ml inj ONE (12:48)
[2018-06-29] MEDS ORDERED: HYDROcodone/acetaminophen 5mg/325mg tablet PO PRN (12:55)
[2018-06-29] MEDS ORDERED: HYDROcodone/acetaminophen 10/325mg tab PO PRN (12:55)
[2018-06-29] MEDS: morphine 2 MG/ML inj. syringe IV PRN ×2 (16:16→20:23)
[2018-06-29] MEDS: potassium Cl 20mEq in NS 1,000 ML IV SCH (16:51)
[2018-06-29] MEDS ORDERED: lactobacillus rhamnosus 10,000 MMU CELLS/CAPSULE PO SCH (20:00)
[2018-06-29] MEDS: gabapentin 300mg capsule PO SCH (20:22)
[2018-06-29] MEDS: montelukast 10mg tablet PO SCH (20:22)
[2018-06-30] VITALS: BP 161/60
[2018-06-30] MEDS: morphine 2 MG/ML inj. syringe IV PRN (00:28)
[2018-06-30] MEDS: ipratropium/albuterol 3ml nebule IH SCH ×2 (02:06→09:46)
[2018-06-30] MEDS: potassium Cl 20mEq in NS 1,000 ML IV SCH (04:53)
[2018-06-30 05:58] LABS: BASOPHILS % (AUTO) 0.3 % (0-1); EOSINOPHILS # (AUTO) 0.3 X10'3 (0-0.9); EOSINOPHILS % (AUTO) 3.2 % (0-6); HEMATOCRIT 28.4 % (35.0-45.0); HEMOGLOBIN 9.1 g/dl (12.0-16.0); LYMPHOCYTES # (AUTO) 0.9 X10'3 (1.1-4.8); LYMPHOCYTES % (AUTO) 9.9 % (21-51); MEAN CORPUSCULAR HEMOGLOBIN 29.1 PG (27.0-31.0); MEAN CORPUSCULAR HGB CONC 31.9 % (33.0-36.5); MEAN PLATELET VOLUME 7.1 FL (7.4-10.4); MONOCYTES # (AUTO) 0.6 X10'3 (0-0.9); MONOCYTES % (AUTO) 6.9 % (2-12); NEUTROPHILS # (AUTO) 7.1 X10'3 (1.8-7.7); NEUTROPHILS % (AUTO) 79.7 % (42-75); PLATELET COUNT 230 X10'3 (140-440); RED BLOOD COUNT 3.13 X10'6 (4.20-5.60); RED CELL DISTRIBUTION WIDTH 17.6 % (11.5-14.5); WHITE BLOOD COUNT 8.9 X10'3 (4.5-11.0)
[2018-06-30 06:45] LABS: ALANINE AMINOTRANSFERASE 66 U/L (12-78); ALBUMIN 2.3 G/DL (3.4-5.0); ALBUMIN/GLOBULIN RATIO 0.7 (1.1-1.5); ALKALINE PHOSPHATASE 205 IU/L (46-116); ANION GAP 10 (8-16); ASPARTATE AMINO TRANSFERASE 32 U/L (10-37); BILIRUBIN,TOTAL 0.5 MG/DL (0.1-1.0); BLOOD UREA NITROGEN 9 MG/DL (7-18); BUN/CREATININE RATIO 10.5 (6.6-38.0); CALCIUM 8.5 MG/DL (8.5-10.1); CHLORIDE 106 MMOL/L (99-107); CREATININE 0.86 MG/DL (0.40-0.90); GLUCOSE 84 MG/DL (70-104); MAGNESIUM 1.4 MG/DL (1.5-2.4); POTASSIUM 4.1 MMOL/L (3.5-5.1); SODIUM 140 MMOL/L (135-145); TOTAL CARBON DIOXIDE 24.5 MMOL/L (24-32); TOTAL PROTEIN 5.6 G/DL (6.4-8.2); eGFR 63 ML/MIN
[2018-06-30 07:00] VITALS: BP 163/63
[2018-06-30] MEDS: levoTHYROXINE 125mcg tablet PO SCH (09:20)
[2018-06-30] MEDS: losartan 50mg tablet PO SCH (09:21)
[2018-06-30] MEDS: potassium Cl 20 mEq SR tablet PO SCH (09:21)
[2018-06-30] MEDS: amLODIPine 5mg tablet PO SCH (09:21)
[2018-06-30] MEDS: calcitriol 0.25mcg capsule PO SCH (09:22)
[2018-06-30] MEDS: allopurinol 300 MG tablet PO SCH (09:22)
[2018-06-30] MEDS: docusate sod 100mg capsule PO SCH (09:22)
[2018-06-30] MEDS: lactobacillus rhamnosus 10,000 MMU CELLS/CAPSULE PO SCH (09:22)
[2018-06-30] MEDS: pantoprazole 40mg Tablet.DR PO SCH (09:22)
[2018-06-30] MEDS: magnesium oxide 400mg tablet PO SCH (09:22)
[2018-06-30] MEDS: sennosides 8.6mg tablet PO SCH (09:22)
[2018-06-30] MEDS ORDERED: ACET-2119 PO (09:34)
[2018-06-30] MEDS: budesonide 0.5mg/2ml UD nebule IH SCH (09:46)
== END 2018-06-30 12:05 | disposition home or self-care (01) | DRG 853 ==
LOC: ER 19:55 → ED HOLD 22:55 → SUR 3N 06-25 00:25 → CMPBEDREQ 06-25 00:28
PROVIDERS: ADMIT Internal Medicine; ATTEND Hospitalist
PROC: CF1C1ZZ Planar Nuclear Medicine Imaging of Hepatobiliary System, All using Technetium 99m (Tc-99m) (ICD-10-PCS; 2018-06-25)
PROC: 0F798DZ Dilation of Common Bile Duct with Intraluminal Device, Via Natural or Artificial Opening Endoscopic (ICD-10-PCS; 2018-06-27)
PROC: 0FC98ZZ Extirpation of Matter from Common Bile Duct, Via Natural or Artificial Opening Endoscopic (ICD-10-PCS; 2018-06-27)
PROC: BF101ZZ Fluoroscopy of Bile Ducts using Low Osmolar Contrast (ICD-10-PCS; 2018-06-27)
PROC: 0FT44ZZ Resection of Gallbladder, Percutaneous Endoscopic Approach (ICD-10-PCS; principal; 2018-06-29 11:54)
DX: A41.9 Sepsis, unspecified organism (principal); J96.01 Acute respiratory failure with hypoxia; J18.9 Pneumonia, unspecified organism; J44.0 Chronic obstructive pulmonary disease with (acute) lower respiratory infection; N39.0 Urinary tract infection, site not specified; K80.71 Calculus of gallbladder and bile duct without cholecystitis with obstruction; R94.5 Abnormal results of liver function studies; G47.33 Obstructive sleep apnea (adult) (pediatric); E87.6 Hypokalemia; E83.42 Hypomagnesemia; E78.5 Hyperlipidemia, unspecified; E78.00 Pure hypercholesterolemia, unspecified; B96.20 Unspecified Escherichia coli [E. coli] as the cause of diseases classified elsewhere; K82.8 Other specified diseases of gallbladder; M19.90 Unspecified osteoarthritis, unspecified site; R74.0 Nonspecific elevation of levels of transaminase and lactic acid dehydrogenase [LDH]; E03.9 Hypothyroidism, unspecified; I10 Essential (primary) hypertension; D64.9 Anemia, unspecified; K21.9 Gastro-esophageal reflux disease without esophagitis; Z66 Do not resuscitate; Z96.651 Presence of right artificial knee joint; Z90.710 Acquired absence of both cervix and uterus; Z88.2 Allergy status to sulfonamides; Z88.8 Allergy status to other drugs, medicaments and biological substances; Z79.899 Other long term (current) drug therapy; Z79.82 Long term (current) use of aspirin; Z87.891 Personal history of nicotine dependence; Z85.3 Personal history of malignant neoplasm of breast
CPT/HCPCS: 36415; 43274; 71045; 71250; 74176; 74181; 78226; 80053; 80329; 81001; 83605; 83735; 83880; 84145; 84484; 85025; 85610; 85730; 86885; 86900; 86901; 87040; 87070; 87077; 87088; 87186; 88304; 93005; 94640; 94760; 96365; 96367; 97116; 97161; 97530; 99152; 99153; 99285; A4620; A7000; A9537; C1726; G0378; J1200; J1610; J1650; J1956; J2175; J2250; J2270; J2543; J2704; J2710; J3010; J3370; J3475; J3480; J3490; J7030; J7120; J7626; Q9967

== ENCOUNTER 2023-03-22 14:45 | Outpatient (CLI) | payer MEDICARE, OTHER ==
[~2023-03-22] VITALS: Ht 167.6 cm; Wt 94.8 kg
[~2023-03-22 14:45] MED LIST changes: +ACET-2119 PO; +ASPI-1265 PO; +CALC0.253 PO; +CHOL10002 PO; +CYAN250014 PO; -DOCU-20 PO; +DOCU-348 PO; +IRON150C13 PO; -LEVO112T5 PO; +LEVO25TA2 PO; +LOSA25TA96 PO; +MAGN400C PO; +MONT-40 PO; -MONT10TA24 PO; -OMEP20CA10 PO; +OMEP20CA15 PO; -SENN-161 PO; +SENN-263 PO; +SIMV5TAB58 PO; -VALS160T2 PO
[2023-03-22 16:13] LABS: BASOPHILS # (AUTO) 0.1 X10'3 (0-0.2); EOSINOPHILS # (AUTO) 0.1 X10'3 (0-0.9); EOSINOPHILS % (AUTO) 1.4 % (0-6); LYMPHOCYTES # (AUTO) 1.5 X10'3 (1.1-4.8); LYMPHOCYTES % (AUTO) 16.2 % (21-51); MEAN CORPUSCULAR HEMOGLOBIN 31.4 PG (27.0-31.0); MEAN CORPUSCULAR HGB CONC 32.6 g/dL (33.0-36.5); MEAN CORPUSCULAR VOLUME 96.2 FL (78-98); MEAN PLATELET VOLUME 6.6 FL (7.4-10.4); MONOCYTES % (AUTO) 10.9 % (2-12); NEUTROPHILS # (AUTO) 6.5 X10'3 (1.8-7.7); NEUTROPHILS % (AUTO) 70.5 % (42-75); PRE OP HEMATOCRIT 37.6 % (35.0-45.0); PRE OP HEMOGLOBIN 12.3 g/dL (12.0-16.0); PRE OP PLATELET COUNT 251 X10'3 (140-440); PRE OP WHITE BLOOD COUNT 9.2 10'3 (4.8-10.8); RED BLOOD COUNT 3.91 X10'6 (4.20-5.60); RED CELL DISTRIBUTION WIDTH 14.7 % (11.5-14.5)
[2023-03-22 16:22] LABS: ALBUMIN 3.6 G/DL (3.4-5.0); ALKALINE PHOSPHATASE 92 IU/L (46-116); BLOOD UREA NITROGEN 40 MG/DL (7-18); CALCIUM 10.6 MG/DL (8.5-10.1); CHLORIDE 100 MMOL/L (99-107); CREATININE 1.54 MG/DL (0.40-0.90); PRE OP ALT 12 U/L (30-65); PRE OP ANION GAP 9 (8-16); PRE OP AST 15 U/L (10-37); PRE OP BILIRUB, TOTAL 0.2 MG/DL (0.0-1.0); PRE OP GLUCOSE 114 MG/DL (70-104); PRE OP POTASSIUM 3.9 MMOL/L (3.4-5.1); PRE OP SODIUM 137 MMOL/L (135-145); TOTAL PROTEIN 7.3 G/DL (6.4-8.2); eGFR 32 ML/MIN
[2023-03-22] MEDS ORDERED: IRON150C5 PO (16:36)
[2023-03-22] MEDS ORDERED: HYDR-4070 PO (16:36)
[2023-03-22] MEDS ORDERED: FLUT16SP13 BOTHNARES (16:36)
[2023-03-22] MEDS ORDERED: VIT1CAPS46 PO (16:36)
[2023-03-22] MEDS ORDERED: LORA10TA7 PO (16:36)
[2023-03-22] MEDS ORDERED: PANT-47 PO (16:36)
[2023-03-22] MEDS ORDERED: POLY1DRO2 OP (16:36)
[2023-03-22] MEDS ORDERED: SODI15DR6 OP (16:36)
[2023-03-30] MEDS ORDERED: ringers solution, lacted 1,000 ML IV SCH (05:00)
[2023-03-30] MEDS ORDERED: cefazolin 2gm/D5W 100mL 100 ML IV ONE (05:30)
[2023-03-30] MEDS ORDERED: famotidine 20mg tablet PO ONE (05:30)
== END 2023-03-22 23:59 | disposition home or self-care (01) ==
LOC: LAB 14:45 → EDSTATUS 03-30 12:00
PROVIDERS: ATTEND Orthopaedic Surgery Hand Surgery
DX: Z01.812 Encounter for preprocedural laboratory examination (principal); G56.02 Carpal tunnel syndrome, left upper limb; D64.9 Anemia, unspecified; J44.9 Chronic obstructive pulmonary disease, unspecified; G47.30 Sleep apnea, unspecified; M10.9 Gout, unspecified; M19.90 Unspecified osteoarthritis, unspecified site; K21.9 Gastro-esophageal reflux disease without esophagitis; E04.9 Nontoxic goiter, unspecified; I12.9 Hypertensive chronic kidney disease with stage 1 through stage 4 chronic kidney disease, or unspecified chronic kidney disease; N18.30 Chronic kidney disease, stage 3 unspecified; E66.9 Obesity, unspecified; Z68.34 Body mass index [BMI] 34.0-34.9, adult; Z87.891 Personal history of nicotine dependence; Z88.8 Allergy status to other drugs, medicaments and biological substances; Z88.2 Allergy status to sulfonamides; Z96.651 Presence of right artificial knee joint; Z95.0 Presence of cardiac pacemaker; Z85.41 Personal history of malignant neoplasm of cervix uteri; Z79.899 Other long term (current) drug therapy
CPT/HCPCS: 36415; 80053; 85025; 93005; J0690; J7120

== ENCOUNTER 2023-10-05 03:13 | Inpatient (IN) | payer MEDICARE, OTHER ==
[2023-10-05] VITALS (9 sets, daily range): PULSE 66–90; RESP 16–19; O2SAT 94
[~2023-10-05] VITALS: Ht 167.6 cm; Wt 91.0 kg
[~2023-10-05 03:13] MED LIST changes: -ACET-2119 PO; -ASPI-1265 PO; +FLUT16SP13 BOTHNARES; +HYDR50TA46 PO; -IRON150C13 PO; +IRON150C5 PO; +LORA10TA7 PO; +LOSA-415 PO; -LOSA25TA96 PO; -OMEP20CA15 PO; +PANT-47 PO; +POLY1DRO2 OP; +SODI15DR6 OP; +VIT1CAPS46 PO
[2023-10-05 04:17] LABS: BASOPHILS # (AUTO) 0.1 X10'3 (0-0.2); BASOPHILS % (AUTO) 0.4 % (0-1); EOSINOPHILS % (AUTO) 0.1 % (0-6); HEMOGLOBIN 12.6 g/dl (12.0-16.0); LYMPHOCYTES # (AUTO) 1.7 X10'3 (1.1-4.8); LYMPHOCYTES % (AUTO) 11.2 % (21-51); MEAN CORPUSCULAR HEMOGLOBIN 31.4 PG (27.0-31.0); MEAN CORPUSCULAR HGB CONC 32.3 g/dL (33.0-36.5); MEAN CORPUSCULAR VOLUME 97.1 FL (78-98); MEAN PLATELET VOLUME 7.4 FL (7.4-10.4); MONOCYTES # (AUTO) 0.4 X10'3 (0-0.9); NEUTROPHILS # (AUTO) 12.7 X10'3 (1.8-7.7); NEUTROPHILS % (AUTO) 85.3 % (42-75); PLATELET COUNT 178 X10'3 (140-440); RED BLOOD COUNT 4.02 X10'6 (4.20-5.60); RED CELL DISTRIBUTION WIDTH 15.3 % (11.5-14.5); WHITE BLOOD COUNT 14.9 X10'3 (4.5-11.0)
[2023-10-05] MEDS ORDERED: albuterol 2.5 MG/3 ML nebule CONTNEB PRN (04:25)
[2023-10-05] MEDS: ipratropium 0.5 MG/2.5ML nebule IH ONE (04:25)
[2023-10-05 04:31] LABS: APTT 23 SECONDS (22-32); PROTHROMBIN TIME 10.3 SECONDS (9.0-12.0)
[2023-10-05 04:33] LABS: ALANINE AMINOTRANSFERASE 16 U/L (12-78); ALBUMIN 3.5 G/DL (3.4-5.0); ALKALINE PHOSPHATASE 92 IU/L (46-116); ANION GAP 13 (8-16); ASPARTATE AMINO TRANSFERASE 21 U/L (10-37); BILIRUBIN,TOTAL 0.3 MG/DL (0.1-1.0); BLOOD UREA NITROGEN 39 MG/DL (7-18); BUN/CREATININE RATIO 23.5 (10.0-20.0); CALCIUM 9.6 MG/DL (8.5-10.1); CHLORIDE 104 MMOL/L (99-107); CREATININE 1.66 MG/DL (0.40-0.90); GLUCOSE 140 MG/DL (70-104); SODIUM 142 MMOL/L (135-145); TOTAL CARBON DIOXIDE 25.4 MMOL/L (24-32); TOTAL PROTEIN 7.1 G/DL (6.4-8.2); eCRCL 22 ML/MIN; eGFR 29 ML/MIN
[2023-10-05 04:38] LABS: POTASSIUM 3.8 MMOL/L (3.5-5.1)
[2023-10-05] MEDS: methylPREDNISolone sod succ 125mg/2ml vial IV ONE (05:06)
[2023-10-05] MEDS: furosemide 40mg/4ml inj IV ONE (05:06)
[2023-10-05] MEDS: acetaminophen 325mg tablet PO STA (05:06)
[2023-10-05] MEDS: piperacillin/tazo 3.375gm/50ml 50 ML IV ONE (05:07)
[2023-10-05] MEDS: albuterol 2.5 MG/3 ML nebule NEB ONE (05:10)
[2023-10-05] MEDS ORDERED: magnesium hydroxide 30ml (MOM) UD suspension PO PRN (05:40)
[2023-10-05] MEDS ORDERED: magnesium 4gm in 100ml NS 100 ML IV PRN (05:40)
[2023-10-05] MEDS ORDERED: potassium Cl 20 mEq SR tablet PO PRN (05:40)
[2023-10-05] MEDS ORDERED: ipratropium/albuterol 3ml nebule NEB PRN ×2 (05:40→06:45)
[2023-10-05] MEDS ORDERED: mag hydrox/Alum hydrox/simeth 30ml oral suspension PO PRN (05:40)
[2023-10-05] MEDS ORDERED: magnesium 2GM in 50ml NS 50 ML IV PRN (05:40)
[2023-10-05] MEDS ORDERED: magnesium Cl slow-release 64mg tablet PO PRN (05:40)
[2023-10-05] MEDS ORDERED: ondansetron/PF 4mg/2ml inj IV PRN (05:40)
[2023-10-05] MEDS ORDERED: acetaminophen 325mg tablet PO PRN ×2 (05:40)
[2023-10-05] MEDS ORDERED: potassium Cl 40MEQ/1/2NS 520ml 520 ML IV PRN (05:40)
[2023-10-05] MEDS: vancomycin/NS 1 GM ADD-VANTAGE 250 ML IV ONE (05:49)
[2023-10-05] MEDS: VANCOMYCIN 750MG IV in NS 250 ML IV ONE (06:52)
[2023-10-05] MEDS: K and/or MAG REPLACEMENT MC SCH (08:00)
[2023-10-05] MEDS ORDERED: azithromycin/NS 500mg/250ml 250 ML IV SCH (08:00)
[2023-10-05] MEDS: heparin, porcine 5000 units/ml vial SQ SCH (08:15)
[2023-10-05] MEDS: CefTRIAXone/D5W-Rocephin 1gm 50 ML IV SCH (08:17)
[2023-10-05] MEDS ORDERED: albuterol 2.5 MG/3 ML nebule NEB PRN (08:45)
[2023-10-05 09:23] LABS: MAGNESIUM 1.7 MG/DL (1.5-2.4); POTASSIUM 3.4 MMOL/L (3.5-5.1)
[2023-10-05] MEDS: ipratropium/albuterol 3ml nebule NEB SCH (10:15)
[2023-10-05 11:46] LABS: BILIRUBIN,URINE NEGATIVE (Neg); CLARITY,URINE CLEAR (Clear); COLOR,URINE YELLOW (Yellow); GLUCOSE, URINE NEGATIVE (Neg); KETONES,URINE NEGATIVE (Neg); LEUKOCYTE ESTERASE ,URINE NEGATIVE (Neg); NITRITES, URINE NEGATIVE (Neg); OCCULT BLOOD,URINE NEGATIVE (Neg); PH,URINE 5.5 (4.8-8.0); PROTEIN,URINE NEGATIVE (Neg); UROBILINOGEN,URINE 0.2 E.U/dL (0.2-1.0)
[2023-10-05 11:49] LABS: UA COLLECTION TYPE FOLEY CATH
[2023-10-05] MEDS: cefepime 1GM/NS ADD-VANTAGE 100 ML IV SCH (17:20)
[2023-10-05] MEDS: potassium Cl 20 mEq SR tablet PO PRN (20:06)
[2023-10-05] MEDS: budesonide 0.5mg/2ml UD nebule IH SCH (20:38)
[2023-10-06] VITALS (19 sets, daily range): BP systolic 110–160; BP diastolic 38–74; PULSE 60–97; RESP 16–69; TEMP 97.8–98.5; O2SAT 16–98
[2023-10-06] MEDS ORDERED: TRAM50TA2 PO (00:24)
[2023-10-06] MEDS ORDERED: AMLO10TA13 PO (01:41)
[2023-10-06] MEDS: gabapentin 300mg capsule PO ONE (02:34)
[2023-10-06] MEDS: VANCOMYCIN 750MG IV in NS 250 ML IV SCH (08:26)
[2023-10-06 08:28] LABS: ABG BASE EXCESS -2.4 mmol/L (-2.0-2.0); ABG HCO3 22.4 mmol/L (22.0-26.0); ABG OXYGEN SATURATION 95.4 % (94-97); ABG PCO2 (T) 40.2 mmHg (32.0-45.0); ABG PH (T) 7.368 (7.350-7.450); ABG PO2 (T) 84.7 mmHg (75.0-100.0); ALLEN'S TEST POSITIVE; FCOHb 0.3 % (0.0-3.9); FHHb 4.6 % (0.0-5.0); FLOW 10 L/min; FMetHb 0.4 % (0.0-1.5); FO2Hb 94.7 % (94-97); MODE MASK - NRB; PATIENT TEMPERATURE 37.9; TOTAL HEMOGLOBIN 13.5 G/dl (12.0-16.0)
[2023-10-06 09:25] LABS: BASOPHILS % (AUTO) 0.1 % (0-1); EOSINOPHILS % (AUTO) 0 % (0-6); HEMATOCRIT 32.9 % (35.0-45.0); HEMOGLOBIN 10.4 g/dl (12.0-16.0); LYMPHOCYTES # (AUTO) 1.1 X10'3 (1.1-4.8); LYMPHOCYTES % (AUTO) 4.6 % (21-51); MEAN CORPUSCULAR HEMOGLOBIN 30.9 PG (27.0-31.0); MEAN CORPUSCULAR HGB CONC 31.7 g/dL (33.0-36.5); MEAN CORPUSCULAR VOLUME 97.4 FL (78-98); MEAN PLATELET VOLUME 7.3 FL (7.4-10.4); MONOCYTES # (AUTO) 1.5 X10'3 (0-0.9); NEUTROPHILS # (AUTO) 21.8 X10'3 (1.8-7.7); NEUTROPHILS % (AUTO) 89.3 % (42-75); PLATELET COUNT 151 X10'3 (140-440); RED BLOOD COUNT 3.37 X10'6 (4.20-5.60); RED CELL DISTRIBUTION WIDTH 15.4 % (11.5-14.5); WHITE BLOOD COUNT 24.5 X10'3 (4.5-11.0)
[2023-10-06 11:04] LABS: ALANINE AMINOTRANSFERASE 16 U/L (12-78); ALBUMIN/GLOBULIN RATIO 0.8 (1.1-1.5); ALKALINE PHOSPHATASE 62 IU/L (46-116); ANION GAP 8 (8-16); ASPARTATE AMINO TRANSFERASE 20 U/L (10-37); BILIRUBIN,TOTAL 0.2 MG/DL (0.1-1.0); BLOOD UREA NITROGEN 46 MG/DL (7-18); BUN/CREATININE RATIO 29.1 (10.0-20.0); CALCIUM 10.2 MG/DL (8.5-10.1); CHLORIDE 107 MMOL/L (99-107); CREATININE 1.58 MG/DL (0.40-0.90); GLUCOSE 92 MG/DL (70-104); MAGNESIUM 2.1 MG/DL (1.5-2.4); PHOSPHORUS 2.9 MG/DL (2.3-4.5); POTASSIUM 4.5 MMOL/L (3.5-5.1); SODIUM 142 MMOL/L (135-145); TOTAL CARBON DIOXIDE 27.3 MMOL/L (24-32); TOTAL PROTEIN 6.8 G/DL (6.4-8.2); eCRCL 23 ML/MIN; eGFR 31 ML/MIN
[2023-10-06] MEDS: hydrALAZINE 25 MG tablet PO SCH (17:02)
[2023-10-06] MEDS: loratadine 10mg tablet PO SCH (20:06)
[2023-10-06] MEDS: montelukast 10mg tablet PO SCH (20:06)
[2023-10-06] MEDS: atorvastatin 20mg tablet PO SCH (20:06)
[2023-10-06] MEDS: gabapentin 300mg capsule PO SCH (20:07)
[2023-10-06] MEDS: sennosides 8.6mg tablet PO SCH (20:07)
[2023-10-07] VITALS (9 sets, daily range): BP systolic 123–144; BP diastolic 39–56; PULSE 64–79; RESP 16–20; TEMP 97.8–98.7; O2SAT 92–96
[2023-10-07 07:45] LABS: BASOPHILS % (AUTO) 0.3 % (0-1); EOSINOPHILS # (AUTO) 0.1 X10'3 (0-0.9); EOSINOPHILS % (AUTO) 0.4 % (0-6); HEMATOCRIT 27.5 % (35.0-45.0); HEMOGLOBIN 9.1 g/dl (12.0-16.0); LYMPHOCYTES # (AUTO) 1.1 X10'3 (1.1-4.8); LYMPHOCYTES % (AUTO) 7.9 % (21-51); MEAN CORPUSCULAR HEMOGLOBIN 31.9 PG (27.0-31.0); MEAN CORPUSCULAR HGB CONC 33.1 g/dL (33.0-36.5); MEAN CORPUSCULAR VOLUME 96.4 FL (78-98); MEAN PLATELET VOLUME 7.5 FL (7.4-10.4); MONOCYTES % (AUTO) 6.9 % (2-12); NEUTROPHILS % (AUTO) 84.5 % (42-75); PLATELET COUNT 146 X10'3 (140-440); RED BLOOD COUNT 2.85 X10'6 (4.20-5.60); WHITE BLOOD COUNT 14.2 X10'3 (4.5-11.0)
[2023-10-07] MEDS ORDERED: non-formulary drug (Vit C/E/Zn/Coppr/Lutein/Zeaxan (Preservision Areds 2 Softgel) 1 CAP) PO SCH (08:00)
[2023-10-07] MEDS ORDERED: non-formulary drug (Fluticasone/Vilanterol (Breo Ellipta 100-25 Mcg INH) 1 PUFF) INH SCH (08:00)
[2023-10-07] MEDS ORDERED: TIOTROPIUM BROMIDE INH SCH (08:00)
[2023-10-07 08:11] LABS: ALANINE AMINOTRANSFERASE 15 U/L (12-78); ALBUMIN 2.4 G/DL (3.4-5.0); ALBUMIN/GLOBULIN RATIO 0.7 (1.1-1.5); ALKALINE PHOSPHATASE 61 IU/L (46-116); ANION GAP 7 (8-16); ASPARTATE AMINO TRANSFERASE 16 U/L (10-37); BILIRUBIN,TOTAL 0.3 MG/DL (0.1-1.0); BLOOD UREA NITROGEN 39 MG/DL (7-18); BUN/CREATININE RATIO 31.5 (10.0-20.0); CALCIUM 9.4 MG/DL (8.5-10.1); CHLORIDE 109 MMOL/L (99-107); CREATININE 1.24 MG/DL (0.40-0.90); GLUCOSE 95 MG/DL (70-104); MAGNESIUM 1.9 MG/DL (1.5-2.4); PHOSPHORUS 3.1 MG/DL (2.3-4.5); POTASSIUM 4.6 MMOL/L (3.5-5.1); SODIUM 142 MMOL/L (135-145); TOTAL CARBON DIOXIDE 25.7 MMOL/L (24-32); TOTAL PROTEIN 5.8 G/DL (6.4-8.2); eCRCL 30 ML/MIN; eGFR 41 ML/MIN
[2023-10-07] MEDS: allopurinol 100mg tablet PO SCH (08:15)
[2023-10-07] MEDS: cyanocobalamin 500mcg tablet PO SCH (08:16)
[2023-10-07] MEDS: levoTHYROXINE 25mcg tablet PO SCH (08:17)
[2023-10-07] MEDS: calcitriol 0.25mcg capsule PO SCH (08:17)
[2023-10-07] MEDS: iron polysaccharide complex 150mg capsule PO SCH (08:18)
[2023-10-07] MEDS: cholecalciferol (vitamin D3) 1,000 unit (25mcg) tablet PO SCH (08:19)
[2023-10-07] MEDS: losartan 25mg tablet PO SCH (08:25)
[2023-10-07] MEDS: amLODIPine 5mg tablet PO SCH (08:26)
[2023-10-07] MEDS: fluticasone nasal spray 16GM bottle NS SCH (08:27)
[2023-10-07 11:15] LABS: % IRON SATURATION 11 % (11-46); IRON 22 UG/DL (49-151); TOTAL IRON BINDING CAPACITY 205 UG/DL (259-388)
[2023-10-07] MEDS: cefepime inj. 0.5 GM in normal saline 100ml IV soln 105 ML IV SCH (15:27)
[2023-10-07 17:41] LABS: OCCULT BLOOD STOOL NEGATIVE (Neg)
[2023-10-07] MEDS: gabapentin 300mg capsule PO SCH (19:47)
[2023-10-07] MEDS: HYDROcodone/acetaminophen 5mg/325mg tablet PO PRN (20:46)
[2023-10-07] MEDS: iron sucrose complex injection 500 MG in normal saline 250ml IV soln 250 ML IV ONE (21:10)
[2023-10-08] VITALS (9 sets, daily range): BP systolic 111–139; BP diastolic 44–80; PULSE 56–66; RESP 16–18; TEMP 97.3–98.7; O2SAT 89–98
[2023-10-08] MEDS: VANCOMYCIN LEVEL IJ ONE (06:30)
[2023-10-08] MEDS ORDERED: gabapentin 100mg capsule PO SCH (08:00)
[2023-10-08 09:15] LABS: BASOPHILS # (AUTO) 0.1 X10'3 (0-0.2); BASOPHILS % (AUTO) 0.5 % (0-1); EOSINOPHILS # (AUTO) 0.1 X10'3 (0-0.9); EOSINOPHILS % (AUTO) 1.2 % (0-6); HEMATOCRIT 32.2 % (35.0-45.0); HEMOGLOBIN 10.6 g/dl (12.0-16.0); LYMPHOCYTES # (AUTO) 1.4 X10'3 (1.1-4.8); LYMPHOCYTES % (AUTO) 12.8 % (21-51); MEAN CORPUSCULAR HEMOGLOBIN 31.6 PG (27.0-31.0); MEAN CORPUSCULAR HGB CONC 32.9 g/dL (33.0-36.5); MEAN PLATELET VOLUME 7.7 FL (7.4-10.4); MONOCYTES # (AUTO) 0.9 X10'3 (0-0.9); MONOCYTES % (AUTO) 7.6 % (2-12); NEUTROPHILS # (AUTO) 8.8 X10'3 (1.8-7.7); NEUTROPHILS % (AUTO) 77.9 % (42-75); PLATELET COUNT 198 X10'3 (140-440); RED BLOOD COUNT 3.35 X10'6 (4.20-5.60); RED CELL DISTRIBUTION WIDTH 15.1 % (11.5-14.5); WHITE BLOOD COUNT 11.3 X10'3 (4.5-11.0)
[2023-10-08 09:41] LABS: ALANINE AMINOTRANSFERASE 18 U/L (12-78); ALBUMIN 2.7 G/DL (3.4-5.0); ALBUMIN/GLOBULIN RATIO 0.7 (1.1-1.5); ALKALINE PHOSPHATASE 74 IU/L (46-116); ANION GAP 9 (8-16); ASPARTATE AMINO TRANSFERASE 14 U/L (10-37); BILIRUBIN,TOTAL 0.5 MG/DL (0.1-1.0); BLOOD UREA NITROGEN 35 MG/DL (7-18); BUN/CREATININE RATIO 26.1 (10.0-20.0); CHLORIDE 108 MMOL/L (99-107); CREATININE 1.34 MG/DL (0.40-0.90); GLUCOSE 100 MG/DL (70-104); MAGNESIUM 1.9 MG/DL (1.5-2.4); PHOSPHORUS 3.5 MG/DL (2.3-4.5); POTASSIUM 4.5 MMOL/L (3.5-5.1); SODIUM 142 MMOL/L (135-145); TOTAL CARBON DIOXIDE 24.8 MMOL/L (24-32); TOTAL PROTEIN 6.8 G/DL (6.4-8.2); VANCOMYCIN,TROUGH 10.3 ug/mL (10.0-20.0); eCRCL 28 ML/MIN; eGFR 37 ML/MIN
[2023-10-08 16:14] LABS: THYROID STIMULATING HORMONE 1.31 ulU/ml (0.34-4.50)
[2023-10-09 07:00] VITALS: BP 129/43; PULSE 60; RESP 14; TEMP 97.4; O2SAT 93
[2023-10-09 07:50] LABS: BASOPHILS # (AUTO) 0.1 X10'3 (0-0.2); BASOPHILS % (AUTO) 0.6 % (0-1); EOSINOPHILS # (AUTO) 0.2 X10'3 (0-0.9); HEMATOCRIT 30.6 % (35.0-45.0); HEMOGLOBIN 10.2 g/dl (12.0-16.0); LYMPHOCYTES # (AUTO) 1.4 X10'3 (1.1-4.8); LYMPHOCYTES % (AUTO) 15.8 % (21-51); MEAN CORPUSCULAR HGB CONC 33.2 g/dL (33.0-36.5); MEAN CORPUSCULAR VOLUME 96.2 FL (78-98); MEAN PLATELET VOLUME 7.3 FL (7.4-10.4); MONOCYTES # (AUTO) 0.8 X10'3 (0-0.9); MONOCYTES % (AUTO) 9.3 % (2-12); NEUTROPHILS # (AUTO) 6.2 X10'3 (1.8-7.7); NEUTROPHILS % (AUTO) 72.3 % (42-75); PLATELET COUNT 189 X10'3 (140-440); RED BLOOD COUNT 3.18 X10'6 (4.20-5.60); RED CELL DISTRIBUTION WIDTH 14.8 % (11.5-14.5); WHITE BLOOD COUNT 8.6 X10'3 (4.5-11.0)
[2023-10-09 08:30] LABS: ALANINE AMINOTRANSFERASE 15 U/L (12-78); ALBUMIN 2.6 G/DL (3.4-5.0); ALBUMIN/GLOBULIN RATIO 0.7 (1.1-1.5); ALKALINE PHOSPHATASE 76 IU/L (46-116); ANION GAP 10 (8-16); ASPARTATE AMINO TRANSFERASE 17 U/L (10-37); BILIRUBIN,TOTAL 0.5 MG/DL (0.1-1.0); BLOOD UREA NITROGEN 30 MG/DL (7-18); BUN/CREATININE RATIO 22.9 (10.0-20.0); CALCIUM 9.3 MG/DL (8.5-10.1); CHLORIDE 107 MMOL/L (99-107); CREATININE 1.31 MG/DL (0.40-0.90); GLUCOSE 97 MG/DL (70-104); MAGNESIUM 1.8 MG/DL (1.5-2.4); PHOSPHORUS 3.3 MG/DL (2.3-4.5); SODIUM 141 MMOL/L (135-145); TOTAL CARBON DIOXIDE 23.8 MMOL/L (24-32); TOTAL PROTEIN 6.2 G/DL (6.4-8.2); eCRCL 28 ML/MIN; eGFR 38 ML/MIN
[2023-10-09 08:38] LABS: PLATELET ESTIMATE NORMAL; TOTAL CELLS COUNTED 100
[2023-10-09] MEDS: gabapentin 400mg capsule PO SCH (08:38)
[2023-10-09] MEDS: traMADol 50MG tablet PO PRN (08:56)
[2023-10-09 09:30] VITALS: RESP 17; O2SAT 93
[2023-10-09 10:00] VITALS: BP 134/78; PULSE 60; RESP 16; TEMP 97.4; O2SAT 94
[2023-10-09] MEDS ORDERED: LEVO-65 PO (12:08)
[2023-10-09] MEDS ORDERED: ALBU2.5V7 NEB (12:08)
[2023-10-09] MEDS: vancomycin/NS 1 GM ADD-VANTAGE 250 ML IV SCH (12:16)
[2023-10-09 13:16] VITALS: PULSE 60; RESP 14; O2SAT 94
[2023-10-09 13:24] VITALS: PULSE 66; RESP 18
[2023-10-09 14:00] VITALS: BP_SYST 138; PULSE 76
[2023-10-12] MEDS ORDERED: VANCOMYCIN LEVEL IV ONE (09:30)
== END 2023-10-09 15:08 | disposition home or self-care (01) | DRG 871 ==
LOC: ER 03:13 → ED HOLD 05:50 → ORTHO 4S 10-06 00:16
PROVIDERS: ADMIT Student in an Organized Health Care Education/Training Program; ATTEND Family Medicine
PROC: 5A0935A Assistance with Respiratory Ventilation, Less than 24 Consecutive Hours, High Flow/Velocity Cannula (ICD-10-PCS; principal; 2023-10-05)
PROC: 5A09357 Assistance with Respiratory Ventilation, Less than 24 Consecutive Hours, Continuous Positive Airway Pressure (ICD-10-PCS; 2023-10-06)
PROC: 5A09357 Assistance with Respiratory Ventilation, Less than 24 Consecutive Hours, Continuous Positive Airway Pressure (ICD-10-PCS; 2023-10-07)
DX: A41.9 Sepsis, unspecified organism (principal); G93.41 Metabolic encephalopathy; J18.9 Pneumonia, unspecified organism; J96.01 Acute respiratory failure with hypoxia; J44.1 Chronic obstructive pulmonary disease with (acute) exacerbation; J44.0 Chronic obstructive pulmonary disease with (acute) lower respiratory infection; N17.9 Acute kidney failure, unspecified; I50.9 Heart failure, unspecified; F10.20 Alcohol dependence, uncomplicated; K21.9 Gastro-esophageal reflux disease without esophagitis; D50.9 Iron deficiency anemia, unspecified; Z20.822 Contact with and (suspected) exposure to COVID-19; G47.30 Sleep apnea, unspecified; E78.00 Pure hypercholesterolemia, unspecified; H35.30 Unspecified macular degeneration; I11.0 Hypertensive heart disease with heart failure; Z85.3 Personal history of malignant neoplasm of breast; Z87.891 Personal history of nicotine dependence; Z95.0 Presence of cardiac pacemaker; Z88.2 Allergy status to sulfonamides; Z88.8 Allergy status to other drugs, medicaments and biological substances; Z79.899 Other long term (current) drug therapy; Z90.710 Acquired absence of both cervix and uterus
CPT/HCPCS: 36415; 36600; 71045; 80053; 80202; 81003; 82272; 82803; 83540; 83550; 83605; 83735; 83880; 84100; 84132; 84145; 84443; 85007; 85018; 85025; 85610; 85730; 87040; 87081; 87502; 87503; 87811; 93005; 93306; 94640; 94664; 94668; 94760; 96365; 96367; 96375; 97116; 97161; 97530; 99285; A4615; A5200; G0378; J0692; J0696; J1644; J1756; J1940; J2543; J2930; J3370; J3490; J7040; J7050